=== PATIENT | male | born 1970 | race Two or more races ===

== ENCOUNTER 2022-03-31 17:48 | Emergency (ER) | payer OTHER ==
[~2022-03-31] VITALS: Ht 167.6 cm; Wt 94.5 kg
[2022-03-31 18:15] VITALS: BP 161/107
--- NOTE | 2022-03-31 18:47 | PHYS DOC ---
General Adult EDM: Chief Complaint: RIB PAIN HPI: HPI: 51-year-old male presents with left anterior rib pain. The patient was working on a van when a door came down and hit him quickly in the left side of his inferior ribs. He continues to have discomfort in this area. He feels like every time as he takes a deep breath or twists his torso there is a pulling sensation. It is moderate in intensity. He denies any other injuries at this time. Review of Systems: Review of Systems: Constitutional: Denies fever or chills Eyes: Denies change in visual acuity HENT: Denies nasal congestion or sore throat Respiratory: Denies cough or shortness of breath Cardiovascular: Denies chest pain or edema GI: Denies abdominal pain, nausea, vomiting, bloody stools or diarrhea : Denies dysuria Musculoskeletal: Left anterior rib pain Integument: Denies rash Neurologic: Denies headache, focal weakness or sensory changes Endocrine: Denies polyuria or polydipsia Lymphatic: Denies swollen glands Psychiatric: Denies depression or anxiety Allergies: Allergies: Allergies Coded Allergies Type Severity Reaction Last Updated Verified No Known Drug Allergies 03/31/22 No Physical Exam: PE: Constitutional: Well developed, well nourished, obese, no acute distress, non- toxic appearance. [] HENT: Normocephalic, atraumatic, bilateral external ears normal, oropharynx ino st, no oral exudates, nose normal. [] Eyes: PERRLA, EOMI, conjunctiva normal, no discharge. [] Neck: Normal range of motion, no tenderness, supple, no stridor. [] Cardiovascular: Heart rate regular rhythm, no murmur [] Lungs & Thorax: Bilateral breath sounds clear to auscultation. Tenderness of the left anterior lower ribs. [] Abdomen: Bowel sounds normal, soft, no tenderness, no masses, no pulsatile masses. [] Skin: Warm, dry, no erythema, no rash. [] Back: No tenderness, no CVA tenderness. [] Extremities: No tenderness, no cyanosis, no clubbing, ROM intact, no edema. [] Neurologic: Alert and oriented X 3, normal motor function, normal sensory function, no focal deficits noted. [] Psychologic: Affect normal, judgement normal, mood normal. [] EKG: EKG: [] Radiology/Procedures: Radiology/Procedures: [] Impressions: EXAMINATION: XR RIBS MIN 3 VIEWS LT W/PA CHEST CLINICAL HISTORY: Left-sided chest pain following blunt trauma. EXAM DATE/TIME: 03/31/2022 6:27 PM COMPARISON: None FINDINGS: Lines, Tubes, and Devices: None. Cardiomediastinal Silhouette: Within normal limits. Lungs and Pleura: No evidence of focal airspace consolidation, pleural effusion, or pneumothorax. Bones and Soft Tissues: No evidence of acute left rib fracture. Degenerative changes in the thoracic spine. IMPRESSION: No evidence of acute left rib fracture or acute cardiopulmonary abnormality. Electronically signed by: Jeremias Vargas DO (03/31/2022 7:39 PM) [facility] DICTATED AND SIGNED BY: JEREMIAS VARGAS DO DATE: 03/31/221936 CC: MATT HARRIS DO; SOPHIA LAO MD ~ Heart Score: C/O Chest Pain: N/A Risk Factors: Risk Factors: DM, Current or recent (<one month) smoker, HTN, HLP, family history of CAD, obesity. Risk Scores: Score 0 - 3: 2.5% MACE over next 6 weeks - Discharge Home Score 4 - 6: 20.3% MACE over next 6 weeks - Admit for Clinical Observation Score 7 - 10: 72.7% MACE over next 6 weeks - Early Invasive Strategies Course & Med Decision Making: Course & Med Decision Making Pertinent Labs and Imaging studies reviewed. (See chart for details) The patient's rib x-ray is negative for fracture. He appears to have a rib contusion. I advised supportive car such as rest, ice, and ibuprofen. He is stable for discharge at this time. [] Dragon Disclaimer: Dragon Disclaimer: This electronic medical record was generated, in whole or in part, using a voice recognition dictation system. Departure Departure: Impression: Primary Impression: Contusion of rib on left side Disposition: HOME / SELF CARE / HOMELESS Condition: STABLE Referrals: SOPHIA LAO MD (PCP) Patient Instructions: Rib Contusion MATT HARRIS DO March 31, 2022 18:47
--- NOTE | 2022-03-31 19:42 | RAD ---
EXAMINATION: XR RIBS MIN 3 VIEWS LT W/PA CHEST CLINICAL HISTORY: Left-sided chest pain following blunt trauma. EXAM DATE/TIME: 03/31/2022 6:27 PM COMPARISON: None FINDINGS: Lines, Tubes, and Devices: None. Cardiomediastinal Silhouette: Within normal limits. Lungs and Pleura: No evidence of focal airspace consolidation, pleural effusion, or pneumothorax. Bones and Soft Tissues: No evidence of acute left rib fracture. Degenerative changes in the thoracic spine. IMPRESSION: No evidence of acute left rib fracture or acute cardiopulmonary abnormality. Electronically signed by: Jeremias Yang DO (03/31/2022 7:39 PM) [facility]
== END 2022-03-31 19:49 | disposition home or self-care (01) ==
LOC: ER 17:48
DX: S20.212A Contusion of left front wall of thorax, initial encounter (principal); W22.8XXA Striking against or struck by other objects, initial encounter; Y93.89 Activity, other specified; Y92.89 Other specified places as the place of occurrence of the external cause; Y99.8 Other external cause status
CPT/HCPCS: 71101; 99283